=== PATIENT | female | born 1995 | race Caucasian/White ===

== ENCOUNTER 2021-01-26 15:47 | Emergency (ER) | payer OTHER, SELFPAY ==
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
[2021-01-26 16:00] VITALS: BP 131/82; PULSE 100; RESP 16; TEMP 37.4; O2SAT 100
== END 2021-01-26 16:30 | disposition home or self-care (01) ==
PROVIDERS: Emergency Provider Nurse Practitioner; PCP Internal Medicine Infectious Disease
DX: S13.9XXA Sprain of joints and ligaments of unspecified parts of neck, initial encounter (principal); V49.40XA Driver injured in collision with unspecified motor vehicles in traffic accident, initial encounter
CPT/HCPCS: 99212; G0463